=== PATIENT | male | born 1955 | race Caucasian/White ===

== ENCOUNTER → 2017-05-05 | Outpatient (CLI) | payer OTHER, BC ==
[~2017-05-05] MED LIST: ASPIRIN (CHILDR81 MG PO; ASPIRIN LO-DOSE81 MG PO; ASPIRIN325 MG PO; BRILINTA90 MG PO; CPAP INH; DULERA 200 MCG/51 EA INH; IMDUR30 MG PO; LIPITOR80 MG PO; LOPRESSOR25 MG PO; NICODERM/HABITR21 MG TRANS; NITROGLYCERIN0.2 MG TRANS; NITROGLYCERIN0.4 M1 TRANS; NITROSTAT0.4 MG SL; NORVASC2.5 MG PO; NOVOLOG100 UNIT/1 SUB-Q; NOVOLOG100 UNIT/M; PERCOCET 5-3251 EACH PO; PLAVIX75 MG PO; PROAIR HFA8.5 GM INH; SYMBICORT 16010.2 GM INH; SYMBICORT 80-10.2 GM INH; TYLENOL325 MG PO; VASOTEC2.5 MG PO
== END | disposition disaster alternative care site (69) ==
LOC: GRAD 09:58
DX: R20.2 Paresthesia of skin (principal); M47.892 Other spondylosis, cervical region; M43.12 Spondylolisthesis, cervical region